=== PATIENT | female | born 1960 | race Caucasian/White ===

== ENCOUNTER 2016-11-19 20:23 | Emergency (ER) | payer BC, OTHER ==
[~2016-11-19] VITALS: Ht 154.9 cm; Wt 80.3 kg
[~2016-11-19 20:23] MED LIST: LORA-741 PO; NXM/40 PO; ZNTT/150 PO
[2016-11-19 20:30] VITALS: TEMP 36.2; Ht 154.9 cm; Wt 80.3 kg
[2016-11-19] MEDS ORDERED: LORAZEPAM 2 MG/ML 1 ML VIAL IV STA (20:58)
[2016-11-19] MEDS ORDERED: SODIUM CHLORIDE 0.9% 1000ML 1,000 ML IV STA (20:58)
[2016-11-19] MEDS ORDERED: RANI150T3 PO (21:02)
[2016-11-19 21:26] LABS: BASO % 0.5 %; BASO ABS # 0.05 K/uL (0-0.2); COMPLETE YES; EOS % 0.6 %; HEMATOCRIT 41.4 % (37-47); IG% 0.2 %; LYMPH % 30.5 %; LYMPH ABS # 3.29 K/uL (1.2-3.4); MEAN CELL VOLUME 84.5 fL (80-100); MEAN CORPUSCULAR HGB CONC 35.5 g/dl (32-36); MONO % 10.4 %; NEUT % 57.8 %; PLATELET COUNT 388 K/uL (130-400); WHITE BLOOD COUNT 10.77 K/uL (4.8-10.8)
[2016-11-19 21:36] LABS: MANUAL MICROSCOPIC REQUIRED? NO; REVIEW REQ? NO; URINE APPEARANCE CLEAR (CLEAR); URINE BILIRUBIN NEG (NEG); URINE COLOR YELLOW; URINE NITRITE NEG (NEG); URINE PH 5.5 (4.5-7.5); URINE SPECIFIC GRAVITY 1.006 (1.000-1.030); UROBILINOGEN NEG (NEG); ZZUR CULT IF INDIC CLEAN CATCH NO
--- NOTE | 2016-11-19 21:51 | DIAGNOSTIC IMAGING REPORT ---
CT SCAN OF THE ABDOMEN AND PELVIS WITHOUT IV CONTRAST CLINICAL HISTORY: Right flank pain. COMPARISON STUDY: Abdominal CT dated 10/17/2015. TECHNIQUE: CT scan of the abdomen and pelvis is performed from the lung bases to the proximal femora. Images are reviewed in the axial, sagittal, and coronal planes. IV contrast was not administered for this examination as per the referring clinician. Automated dose control exposure was utilized. CT DOSE: 1146.25 mGy.cm FINDINGS: Lung bases: The heart is normal in size noting trace pericardial fluid. The lung bases are clear. There is a tiny hiatal hernia. Liver: The unenhanced liver is normal in size and contour. The liver demonstrates diffusely diminished attenuation consistent with hepatic steatosis. There is minimal central intrahepatic biliary ductal dilatation. Gallbladder: Surgically absent noting clips in the gallbladder fossa. Spleen: Normal in size and attenuation. Pancreas: Unremarkable. Adrenal glands: Unremarkable. Kidneys: The unenhanced kidneys demonstrate mild cortical atrophy and are without hydronephrosis. There are no renal calculi identified. Right renal cysts measure up to 3.7 cm. Abdominal vasculature: The abdominal aorta is normal in course and caliber noting mild atherosclerotic calcification. Bowel: The small bowel and colon are normal in course and caliber. The appendix is not identified and reported surgically absent. Peritoneum: There is no intraperitoneal free air or abdominal ascites. There is a fat-containing umbilical hernia. Lymphadenopathy: None. Pelvic viscera: Bladder is normal as visualized. The uterus is surgically absent. No adnexal lesion is seen. Skeletal structures: No lytic or blastic lesions are seen. IMPRESSION: 1. There are no acute infectious or inflammatory findings in the abdomen or pelvis. 2. Hepatic steatosis. 3. Status post hysterectomy, cholecystectomy, and appendectomy. Electronically signed by: Anish Sellers M.D. 11/19/2016 9:50 PM Dictated Date/Time: 11/19/2016 9:45 PM
[2016-11-19 21:59] LABS: ALT/SGPT 34 U/L (12-78); BLOOD UREA NITROGEN 12 mg/dl (7-18); BUN/CREATININE RATIO 10.6 (10-20); CALCIUM 9.4 mg/dl (8.5-10.1); CARBON DIOXIDE 26 mmol/L (21-32); CHLORIDE 104 mmol/L (98-107); GLUCOSE 103 mg/dl (70-99); POTASSIUM 3.3 mmol/L (3.5-5.1); SODIUM 142 mmol/L (136-145)
[2016-11-19 22:02] LABS: ALKALINE PHOSPHATASE 83 U/L (45-117); AST/SGOT 23 U/L (15-37)
[2016-11-19] MEDS ORDERED: POTASSIUM CHLORIDE 10 MEQ TABCR PO STA (22:14)
--- NOTE | 2016-11-19 22:56 | EMERGENCY ROOM VISIT NOTE ---
History First contact with patient: 20:33 Chief Complaint: GI ASSESSMENT Stated Complaint: R SIDE PAIN, BACK PAIN, DARK STOOL History of Present Illness The patient is a 56 year old female who presents to the Emergency Room with complaints of right-sided abdominal pain. The patient states that she has had pain on the right side of her abdomen which goes around to her back for approximately 1 week. The patient admits to some intermittent nausea but denies any vomiting. She rates the pain at a 5 out of 10. The patient states that she had 3 bowel movements today which were dark in color performed and some more loose. The patient denies any urinary symptoms of frequency, urgency or dysuria. The patient does admit that her urine looked cloudy. The patient denies a history of kidney stones. The patient does admit to having a cholecystectomy as well as appendectomy and hysterectomy in the past. The patient also admits to a history of diverticulosis. She also has GERD. She had endoscopy performed one year ago which was normal. Review of Systems 10 system review was performed and was negative unless stated otherwise history of present illness. Past Medical/Surgical History Medical Problems: (1) Factor V Leiden (2) GERD (gastroesophageal reflux disease) Surgical Problems: (1) History of cardiac catheterization (2) History of cholecystectomy Family History Blood clots Cancer FH: factor V Leiden mutation Hypertension Social History Smoking Status: Former Smoker Alcohol Use: none Marital Status: Housing Status: lives with significant other Occupation Status: employed Current/Historical Medications Scheduled Ranitidine Hcl (Zantac), 150 MG PO BID Allergies Coded Allergies: No Known Allergies (Unverified , 11/19/16) Physical Exam Vital Signs Date Time Temp Pulse Resp B/P Pulse Ox O2 Delivery O2 Flow Rate FiO2 11/19/16 22:36 76 18 130/67 98 11/19/16 20:30 36.2 104 18 154/92 95 Room Air Physical Exam GENERAL: 56-year-old white female appears in no acute distress. MENTAL Status: Patient is alert and oriented 3. The patient appears very anxious. MOUTH: Mucosa is moist NECK: Supple, no lymphadenopathy noted. No carotid bruits noted. LUNGS: Clear auscultation without wheezes rales or rhonchi. CARDIAC: Regular rate and rhythm without murmur. Pulses is full and equal throughout. BACK: No CVA tenderness noted. ABDOMEN: Positive bowel sounds all 4 quadrants. Soft, nontender to palpation without organomegaly or masses. EXTREMITIES: No cyanosis or edema noted. Medical Decision & Procedures ER Provider Diagnostic Interpretation: CT SCAN OF THE ABDOMEN AND PELVIS WITHOUT IV CONTRAST CLINICAL HISTORY: Right flank pain. COMPARISON STUDY: Abdominal CT dated 10/17/2015. TECHNIQUE: CT scan of the abdomen and pelvis is performed from the lung bases to the proximal femora. Images are reviewed in the axial, sagittal, and coronal planes. IV contrast was not administered for this examination as per the referring clinician. Automated dose control exposure was utilized. CT DOSE: 1146.25 mGy.cm FINDINGS: Lung bases: The heart is normal in size noting trace pericardial fluid. The lung bases are clear. There is a tiny hiatal hernia. Liver: The unenhanced liver is normal in size and contour. The liver demonstrates diffusely diminished attenuation consistent with hepatic steatosis. There is minimal central intrahepatic biliary ductal dilatation. Gallbladder: Surgically absent noting clips in the gallbladder fossa. Spleen: Normal in size and attenuation. Pancreas: Unremarkable. Adrenal glands: Unremarkable. Kidneys: The unenhanced kidneys demonstrate mild cortical atrophy and are without hydronephrosis. There are no renal calculi identified. Right renal cysts measure up to 3.7 cm. Abdominal vasculature: The abdominal aorta is normal in course and caliber noting mild atherosclerotic calcification. Bowel: The small bowel and colon are normal in course and caliber. The appendix is not identified and reported surgically absent. Peritoneum: There is no intraperitoneal free air or abdominal ascites. There is a fat-containing umbilical hernia. Lymphadenopathy: None. Pelvic viscera: Bladder is normal as visualized. The uterus is surgically absent. No adnexal lesion is seen. Skeletal structures: No lytic or blastic lesions are seen. IMPRESSION: 1. There are no acute infectious or inflammatory findings in the abdomen or pelvis. 2. Hepatic steatosis. 3. Status post hysterectomy, cholecystectomy, and appendectomy. Electronically signed by: Anish Sellers M.D. 11/19/2016 9:50 PM Laboratory Results 11/19/16 21:10 Red Blood Count 4.90, Mean Corpuscular Volume 84.5, Mean Corpuscular Hemoglobin 30.0, Mean Corpuscular Hemoglobin Concent 35.5, Mean Platelet Volume 10.0, Neutrophils (%) (Auto) 57.8, Lymphocytes (%) (Auto) 30.5, Monocytes (%) (Auto) 10.4, Eosinophils (%) (Auto) 0.6, Basophils (%) (Auto) 0.5, Neutrophils # (Auto ) 6.22, Lymphocytes # (Auto) 3.29, Monocytes # (Auto) 1.12, Eosinophils # (Auto ) 0.07, Basophils # (Auto) 0.05 11/19/16 21:10 Test 11/19/16 21:10 White Blood Count 10.77 K/uL (4.8-10.8) Red Blood Count 4.90 M/uL (4.2-5.4) Hemoglobin 14.7 g/dL (12.0-16.0) Hematocrit 41.4 % (37-47) Mean Corpuscular Volume 84.5 fL (80-100) Mean Corpuscular Hemoglobin 30.0 pg (25-34) Mean Corpuscular Hemoglobin Concent 35.5 g/dl (32-36) Platelet Count 388 K/uL (130-400) Mean Platelet Volume 10.0 fL (7.4-10.4) Neutrophils (%) (Auto) 57.8 % Lymphocytes (%) (Auto) 30.5 % Monocytes (%) (Auto) 10.4 % Eosinophils (%) (Auto) 0.6 % Basophils (%) (Auto) 0.5 % Neutrophils # (Auto) 6.22 K/uL (1.4-6.5) Lymphocytes # (Auto) 3.29 K/uL (1.2-3.4) Monocytes # (Auto) 1.12 K/uL (0.11-0.59) Eosinophils # (Auto) 0.07 K/uL (0-0.5) Basophils # (Auto) 0.05 K/uL (0-0.2) RDW Standard Deviation 39.9 fL (36.4-46.3) RDW Coefficient of Variation 13.0 % (11.5-14.5) Immature Granulocyte % (Auto) 0.2 % Immature Granulocyte # (Auto) 0.02 K/uL (0.00-0.02) Urine Color YELLOW Urine Appearance CLEAR (CLEAR) Urine pH 5.5 (4.5-7.5) Urine Specific [place] 1.006 (1.000-1.030) Urine Protein NEG (NEG) Urine Glucose (UA) NEG (NEG) Urine Ketones NEG (NEG) Urine Occult Blood NEG (NEG) Urine Nitrite NEG (NEG) Urine Bilirubin NEG (NEG) Urine Urobilinogen NEG (NEG) Urine Leukocyte Esterase TRACE (NEG) Urine WBC (Auto) 1-5 /hpf (0-5) Urine RBC (Auto) 0-4 /hpf (0-4) Urine Hyaline Casts (Auto) 0 /lpf (0-5) Urine Epithelial Cells (Auto) 10-20 /lpf (0-5) Urine Bacteria (Auto) NEG (NEG) Anion Gap 12.0 mmol/L (3-11) Est Creatinine Clear Calc Drug Dose 56.1 ml/min Estimated GFR () 65.9 Estimated GFR (Non- 56.9 BUN/Creatinine Ratio 10.6 (10-20) Calcium Level 9.4 mg/dl (8.5-10.1) Total Bilirubin 0.4 mg/dl (0.2-1) Direct Bilirubin < 0.1 mg/dl (0-0.2) Aspartate Amino Transf (AST/SGOT) 23 U/L (15-37) Alanine Aminotransferase (ALT/SGPT) 34 U/L (12-78) Alkaline Phosphatase 83 U/L (45-117) Total Protein 8.5 gm/dl (6.4-8.2) Albumin 3.9 gm/dl (3.4-5.0) Lipase 112 U/L (73-393) Medications Administered Medications (Trade) Dose Ordered Sig/Jolly Route Start Time Stop Time Status Last Admin Dose Admin Sodium Chloride (Nss 1000ml) 1,000 ml @ 999 mls/hr Q1H1M STAT IV 11/19/16 20:58 11/19/16 21:58 DC 11/19/16 21:22 999 MLS/HR Lorazepam (Ativan Inj) 1 mg NOW STAT IV 11/19/16 20:58 11/19/16 21:01 DC 11/19/16 21:22 1 MG Potassium Chloride (Klor-Con M10) 10 meq NOW STAT PO 11/19/16 22:14 11/19/16 22:16 DC 11/19/16 22:35 10 MEQ ED Course The patient was evaluated. IV access was obtained. The patient was given 1 L normal saline wide-open. The patient was offered pain medication but declined. CBC and differential, renal profile, LFTs and lipase levels were ordered. Urinalysis was ordered. Urinalysis was negative. Labs are reviewed and were unremarkable except for slightly low potassium at 3.3. The patient was given K - Dur [address] stone study was ordered and interpreted by the radiologist as above without any evidence of ureteral or renal calculi. Showed a cyst on her right kidney and a fatty liver. The patient was informed of these incidental findings on her CT and was informed that she does not have a kidney stone. I spoke with the patient for a 15 minutes about her results and she thinks that a lot of her symptoms are coming from stress. She was told that in the past as well. She states that she takes on other people's problems. She is not suicidal homicidal. She takes lorazepam just on an as- needed basis for her anxiety. She is not on any antidepressants or any other chronic anti-anxiety pills. I told her she could speak with her family physician about getting placed on possibly an SSRI for her symptoms. She was also interested in a therapist that she could talk with about her stressors. I had the major case detective give her information on different therapist within the area. The patient was happy with treatment plan and was discharged home in stable condition. Medical Decision Differential diagnoses include reflux, gastritis, gastroenteritis, pancreatitis, mesenteric ischemia, pyelonephritis, urinary tract infection, renal colic, diverticulitis, shingles, bowel obstruction, intussusception, hernia, ovarian torsion, ruptured ovarian cyst, ectopic , . Impression Primary Impression: Anxiety Additional Impressions: Fatty liver Renal cyst Right lower quadrant abdominal pain Hypokalemia Departure Information Dispostion Home / Self-Care Condition GOOD Referrals Ainsley Tong DO (PCP) Forms HOME CARE DOCUMENTATION FORM, IMPORTANT VISIT INFORMATION Patient Instructions Anxiety , [facility] Additional Instructions Use of resources that were given to you by the major case detective for your anxiety. You may also want to speak with your family physician about an anti-anxiety/anti -depressive medication. Continue your lorazepam as needed. Also recommend that you follow a low cholesterol diet and possibly get placed on medication for your high cholesterol if your family physician feels that that is indicated. Eat a banana daily for your low potassium. Follow-up with family doctor this week for reevaluation. If symptoms worsen in the interim, return to ER. Problem Qualifiers
[2016-11-19 23:00] VITALS: BP 130/67; PULSE 76; O2SAT 98
== END 2016-11-19 23:00 | disposition home or self-care (01) ==
LOC: C.EDB 20:25 → C.EDC 23:00
DX: F41.9 Anxiety disorder, unspecified (principal); K76.0 Fatty (change of) liver, not elsewhere classified; N28.1 Cyst of kidney, acquired; R10.31 Right lower quadrant pain; E87.6 Hypokalemia; K21.9 Gastro-esophageal reflux disease without esophagitis; D68.2 Hereditary deficiency of other clotting factors; Z90.49 Acquired absence of other specified parts of digestive tract; Z87.891 Personal history of nicotine dependence

== ENCOUNTER → 2017-03-04 | Outpatient (CLI) | payer OTHER ==
[~2017-03-04] MED LIST changes: -LORA-741 PO; -NXM/40 PO; +RANI150T3 PO; -ZNTT/150 PO
--- NOTE | 2017-03-04 13:51 | DIAGNOSTIC IMAGING REPORT ---
ULTRASOUND OF THE THYROID GLAND CLINICAL HISTORY: Benign neoplasm of the thyroid gland. COMPARISON STUDY: Thyroid ultrasound dated 10/27/2015. TECHNIQUE: Real-time, grayscale, and color flow sonography of the thyroid gland is performed utilizing a high-frequency linear transducer. Images are reviewed in the transverse and longitudinal planes. FINDINGS: Right lobe: The right lobe of the thyroid gland is normal in size and homogeneous in echotexture, measuring 4.2 x 1.4 x 1.4 cm. A 2 mm hypoechoic nodule is incidentally noted in the lower pole. Left lobe: The left lobe of the thyroid gland is normal in size and homogeneous in echotexture, measuring 4.9 x 2.2 x 2.2 cm. A dominant solid and cystic nodule in the midpole measures 2.3 x 2.0 x 2.2 cm (previously measured 2.7 x 2.0 x 1.9 cm). Internal flow seen on color imaging. A hypoechoic nodule in the lower pole measures 1.2 x 0.9 x 1.0 cm (previously measured 1.5 x 1.0 x 1.3 cm). Isthmus: The thyroid isthmus is normal in appearance and measures 0.3 cm in AP diameter. IMPRESSION: No significant change in the appearance of left-sided thyroid nodules as compared to the 10/27/2015 examination. Electronically signed by: Anish Sellers M.D. 03/04/2017 1:50 PM Dictated Date/Time: 03/04/2017 1:48 PM
== END | disposition home or self-care (01) ==
LOC: C.ULTR 12:28
PROVIDERS: ATTEND Otolaryngology
DX: D34 Benign neoplasm of thyroid gland (principal)

== ENCOUNTER → 2017-05-27 | Outpatient (CLI) | payer OTHER ==
--- NOTE | 2017-05-28 15:12 | MAMMOGRAPHY REPORT ---
BILATERAL DIGITAL SCREENING MAMMOGRAM TOMOSYNTHESIS WITH CAD: 05/27/2017 CLINICAL HISTORY: Routine screening. Patient has no complaints. TECHNIQUE: Breast tomosynthesis in addition to standard 2D mammography was performed. Current study was also evaluated with a Computer Aided Detection (CAD) system. COMPARISON: Comparison is made to exams dated: 05/25/2016 mammogram, 05/05/2015 mammogram, 04/27/2014 ma mmogram, 11/11/2013 mammogram, 05/08/2013 mammogram, and 03/30/2013 mammogram - [facility] nter. BREAST COMPOSITION: The tissue of both breasts is extremely dense, which lowers the sensitivity of m ammography. FINDINGS: There is a stable biopsy clip in the right breast. No suspicious mass, architectural dist ortion or cluster of suspicious microcalcifications is seen. IMPRESSION: ACR BI-RADS CATEGORY 1: NEGATIVE There is no mammographic evidence of malignancy. A 1 year screening mammogram is recommended. The pa tient will receive written notification of the results. Approximately 10% of breast cancers are not detected with mammography. A negative mammographic report should not delay biopsy if a clinically suggestive mass is present. Brea Burciaga M.D. ay/:05/27/2017 15:57:24 [place]: Alicia MOYA(Karime)(Simon)(BD), [facility] letter sent: Normal 1/2 BI-RADS Code: ACR BI-RADS Category 1: Negative
== END | disposition home or self-care (01) ==
LOC: C.MAMM 13:29
PROVIDERS: ATTEND Family Medicine
DX: Z12.31 Encounter for screening mammogram for malignant neoplasm of breast (principal)

== ENCOUNTER → 2017-10-01 | Outpatient (CLI) | payer OTHER ==
[2017-10-01 12:50] LABS: ALBUMIN 3.5 gm/dl (3.4-5.0); ALT/SGPT 20 U/L (12-78); BLOOD UREA NITROGEN 12 mg/dl (7-18); CALCIUM 9.5 mg/dl (8.5-10.1); CARBON DIOXIDE 27 mmol/L (21-32); CHOLESTEROL 224 mg/dl (0-200); CREATININE 0.76 mg/dl (0.60-1.20); GLUCOSE 98 mg/dl (70-99); POTASSIUM 3.6 mmol/L (3.5-5.1); SODIUM 138 mmol/L (136-145)
[2017-10-01 13:01] LABS: ALKALINE PHOSPHATASE 76 U/L (45-117); AST/SGOT 15 U/L (15-37); LDL CHOLESTEROL CALCULATED 136 mg/dl; TOTAL PROTEIN 7.8 gm/dl (6.4-8.2)
== END | disposition home or self-care (01) ==
LOC: C.LABPBG 08:28
PROVIDERS: ATTEND Family Medicine
DX: E78.00 Pure hypercholesterolemia, unspecified (principal); E04.1 Nontoxic single thyroid nodule

== ENCOUNTER → 2018-04-17 | Outpatient (CLI) | payer OTHER ==
--- NOTE | 2018-04-17 08:59 | DIAGNOSTIC IMAGING REPORT ---
SOFT TISS HEAD/NECK-THYROID CLINICAL HISTORY: 57 years-old Female with NON NEOPLASM OF THYROID GLAND. Follow-up study in a patient with history of thyroid nodules COMPARISON: Thyroid ultrasound 03/04/2017 and 10/27/2015. TECHNIQUE: Multiple real time sonographic images of the thyroid were obtained accessing astorga scale appearance and color doppler flow. FINDINGS: MEASUREMENTS: Right lobe: 4.2 x 1.7 x 1.4 cm Left lobe: 5.0 x 2.4 x 2.0 cm Isthmus: 0.3 cm PARENCHYMA: The thyroid parenchymal echotexture is generally homogeneous. NODULES: Heterogeneous solid nodule of the mid pole left thyroid with internal cystic spaces measures 2.8 x 2.1 x 1.9 cm, previously 2.3 x 2.0 x 2.2 cm and on study for that measured 2.7 x 2.0 x 1.9 cm. There is of internal flow are seen within this nodule. The previously described nodule of the lower pole left thyroid is not definitively seen on today's study. IMPRESSION: Heterogeneous solid nodule of the mid pole left thyroid appears unchanged from comparison. The previously described solid nodule of the inferior pole left thyroid is not definitively seen on today's study. No new thyroid nodules are identified. The above report was generated using voice recognition software. It may contain grammatical, syntax or spelling errors. Electronically signed by: Gaston De Santiago M.D. 04/17/2018 8:58 AM Dictated Date/Time: 04/17/2018 8:54 AM
== END | disposition home or self-care (01) ==
LOC: C.ULTR 08:30
PROVIDERS: ATTEND Otolaryngology
DX: E04.2 Nontoxic multinodular goiter (principal)